=== PATIENT | female | born 1975 | race Hispanic/Latino ===

== ENCOUNTER 2017-06-01 15:39 | Outpatient (CLI) | payer OTHER ==
--- NOTE | 2017-06-01 16:02 | RAD ---
LEFT HIP TWO VIEWS: History: Left hip pain. FINDINGS: There is mild joint space narrowing, osteophytosis and subchondral sclerosis Femoral head contour is maintained. No acute fracture or dislocation. IMPRESSION: Mild osteoarthritic changes left hip. POS: [facility]
== END 2017-06-01 15:40 | disposition home or self-care (01) ==
LOC: TBSIIMAG 15:39
PROVIDERS: ATTEND Psychiatry & Neurology Neurology
DX: M25.552 Pain in left hip (principal); M16.12 Unilateral primary osteoarthritis, left hip

== ENCOUNTER 2021-03-11 10:39 | Outpatient (CLI) | payer OTHER | END 2021-03-11 10:40 | disposition home or self-care (01) | LOC: BICMAMMO 10:39 | PROVIDERS: ATTEND Nurse Practitioner Family | DX: Z12.31 Encounter for screening mammogram for malignant neoplasm of breast (principal) | CPT/HCPCS: 77063; 77067 ==

== ENCOUNTER 2022-08-18 07:40 | Outpatient (CLI) | payer OTHER ==
[2022-08-18] MEDS ORDERED: Iopamidol 370 76% 100 ML VIAL ONE (08:33)
== END 2022-08-18 07:41 | disposition home or self-care (01) ==
LOC: CT 07:40
PROVIDERS: ATTEND Thoracic Surgery (Cardiothoracic Vascular Surgery)
DX: I72.2 Aneurysm of renal artery (principal); N20.0 Calculus of kidney
CPT/HCPCS: 74174

== ENCOUNTER 2022-08-19 10:54 | Outpatient (CLI) | payer OTHER | END 2022-08-19 10:55 | disposition home or self-care (01) | LOC: BICMAMMO 10:54 | PROVIDERS: ATTEND Nurse Practitioner Family | DX: Z12.31 Encounter for screening mammogram for malignant neoplasm of breast (principal) | CPT/HCPCS: 77063; 77067 ==